=== PATIENT | male | born 1990 | race Caucasian/White ===

== ENCOUNTER 2016-06-12 15:48 | Emergency (ER) | payer BC, OTHER ==
[2016-06-12 15:53] VITALS: BP 147/75; PULSE 68; RESP 16; TEMP 98.1; O2SAT 97
--- NOTE | 2016-06-12 16:10 | EDPHY ---
H & P Time Seen by Provider: 06/12/16 16:15 HPI/ROS: CHIEF COMPLAINT: Left knee pain and swelling HISTORY OF PRESENT ILLNESS: 26-year-old male in the ER via private vehicle complaining of acute left knee pain with swelling after he was wrestling 2 days ago and felt his left patella sublux. Self reduced. Today he "stepped wrong" and felt instability and pain left knee. No fall from height. No paresthesia. No sensory or motor deficit. Reproducible pain with range of motion and palpation PHYSICAL EXAM (Prior to examination, patient consented to physical exam, hands were washed and my usual and customary physical exam procedures followed) 1) GENERAL: Well-developed, well-nourished, alert and oriented. Appears to be in no acute distress. 2) HEAD: Normocephalic 3) HEENT: Pupils equal, round, reactive to light bilaterally. 4) LUNGS: Breathing comfortably. 5) MUSCULOSKELETAL: Exam of the left knee shows mild soft tissue swelling. Tender to palpation anteromedial aspect of knee. . Compartments are soft. Normal color normal temperature. No pain with axial loading 6) SKIN: intact. 7) VASCULAR: DP,PT pulses and cap refill present and brisk distally DIFFERENTIAL DIAGNOSIS: in no particular order including but not limited to fracture, sprain, compartment syndrome, septic arthritis, DVT Xray of the left knee interpreted by myself: no definitive acute osseous abnormality Procedure: Crutches indications for crutch use discussed with patient. Patient fitted for crutches by ER staff. Observed ambulating with crutches. I think the patient has the capacity to safely use crutches. Usual and customary crutch walking precautions provided Procedure: Splint A knee immobilizer splint was applied by ER technical support technician. After application of the splint I returned and re-examined the patient. The splint was adequately immobilizing the joint and distal to the splint the patient's circulation and sensation were intact. Patient shows no signs of compartment syndrome. Was given orthopedic precautions. MEDICAL DECISION MAKING Serial evaluations performed on patient. I discussed the limitations of x-ray in diagnosis of knee pain and injury. At this time I do not think that emergent MRI is currently indicated. However, I have recommended follow-up with Orthopedic surgery and provided this referral information. Informed the patient that outpatient MRI may be indicated. Doubt septic arthritis. Doubt compartment syndrome. Doubt DVT. Smoking Status: Never smoked Constitutional: Initial Vital Signs Temperature (C) 36.7 C 06/12/16 15:50 Heart Rate 68 06/12/16 15:50 Respiratory Rate 16 06/12/16 15:50 Blood Pressure 147/75 H 06/12/16 15:50 O2 Sat (%) 97 06/12/16 15:50 O2 Delivery Mode Room Air Allergies/Adverse Reactions: Penicillins Allergy (Mild, Verified 06/12/16 15:50) Rash Home Medications: Medication Instructions Recorded NK [No Known Home Meds] 06/12/16 MDM/Departure - Depart Disposition: Home, Routine, Self-Care Clinical Impression: Left knee pain Qualifiers: Chronicity: acute Qualified Code(s): M25.562 - Pain in left knee Condition: Good Instructions: Knee Sprain (ED) Additional Instructions: Return to the ER immediately if you experience discoloration, have worsening pain, numbness, tingling, or any other symptoms that concern you. If you received x-rays in the emergency department today, be advised, that ligamentous , tendon, muscular, and other non-bony injury cannot be fully ruled out. Try to keep your affected extremity elevated above the level of your chest, and keep cold packs on the affected area, for the next 48 hours. Referrals: Mayco Beltran MD [Medical Doctor] - 1-2 days without fail (Dr. Mayco Beltran is an orthopedic doctor)
== END 2016-06-12 16:44 | disposition home or self-care (01) ==
DX: S89.92XA Unspecified injury of left lower leg, initial encounter (principal); X58.XXXA Exposure to other specified factors, initial encounter; Y99.8 Other external cause status; Y93.72 Activity, wrestling
CPT/HCPCS: L1830

== ENCOUNTER 2017-08-18 14:48 | Emergency (ER) | payer BC ==
--- NOTE | 2017-08-18 15:19 | EDPHY ---
HPI/HX/ROS/PE/MDM Narrative: CHIEF COMPLAINT: Possible shoulder abscess HISTORY OF PRESENT ILLNESS: This patient is a healthy 27 year old male who states "I believe I may have two abscesses in my right and left shoulder." He self-administers biweekly IM testosterone injections in his deltoids. He had an abscess several years ago which felt similar. His current symptoms have been ongoing for three days, since his last injection. Today, he has felt febrile and diaphoretic. He notes pain when he lifts his shoulder. He denies IV drug use or oral steroid use. No history of diabetes. No recent cough or cold. No chills, chest pain, shortness of breath, palpitations, vomiting, diarrhea, urinary complaints, headache, lightheadedness. REVIEW OF SYSTEMS: Aside from elements discussed in the HPI, a comprehensive 10-point review of systems was reviewed and is negative. PAST MEDICAL HISTORY: Takes lithium. Uses IM testosterone twice weekly. SOCIAL HISTORY: Power-lifting competitor. Employed. Significant other at bedside. VITAL SIGNS: Reviewed by me GENERAL: Well-developed, well-nourished, resting comfortably in no respiratory distress. HEENT: Atraumatic. Eyes: No icterus, no injection. Mouth: moist mucous membranes. No erythema or lesions. Neck: supple with no adenopathy. LUNGS: Clear to auscultation bilaterally, no wheezes, rhonchi or rales. CARDIAC: Regular rate and rhythm, no rubs, murmurs or gallops. ABDOMEN: Soft, nontender, nondistended, bowel sounds normal. BACK: No CVA tenderness. EXTREMITIES: Right shoulder: 4cm x 3cm warm, fluctuant region a over the distal AC extending somewhat onto the deltoid. Pain with ROM. Left shoulder: 1-2 cm focal area of slight tenderness and warmth at the area where the patient had injected his testosterone. No fluctuance felt. Minimal erythema. NEURO: Alert and oriented, grossly nonfocal. SKIN: Warm and dry, no rash. PSYCHIATRIC: Normal mentation, no agitation. Portions of this note were transcribed by a medical review coordinator. I personally performed a history, physical exam, medical decision making, and confirmed accuracy of information the transcribed note. ED Course: 27 y/o male presents with concern for abscess over his left shoulder secondary to IM testosterone injections. Exam reveals [id number] area of warmth and fluctuance over the left AC extending down the deltoid. Patient is afebrile here in the emergency department. Plan for labs including CBC, chemistries, lactic acid. Plan for I&D of the possible abscess. 15:20 Procedure: Incision and Drainage abscess. The patient's abscess was located on the left shoulder. Risks, benefits, alternatives discussed with the patient and consent obtained. The area was prepped and draped in sterile fashion. The patient received local anesthesia with 1% lidocaine with epinephrine. The abscess was incised with a #15 blade and moderate amount of purulent drainage was expressed. The wound was packed to keep the incision open. The patient tolerated the procedure well. The procedure was performed by myself. Laboratory studies unremarkable. Reassessed patient. Plan to discharge home in good condition with prescription for Bactrim as patient has an allergy to penicillin. Follow up and return precautions discussed. He is comfortable with this plan. MDM: Differential diagnoses for the patient's symptom complex was considered including but not limited to soft tissue abscess, deep space abscess, infected joint, septicemia, MRSA, MSSA. - Data Points Laboratory Results: Laboratory Results 08/18/17 15:38 08/18/17 15:38 Medications Given: Discontinued Medications Fentanyl (Sublimaze) 75 mcg IVP EDNOW ONE Stop: 08/18/17 15:40 Last Admin: 08/18/17 15:51 Dose: Not Given Sodium Chloride (Ns) 1,000 mls @ 0 mls/hr IV ONCE ONE; Wide Open PRN Reason: Protocol Stop: 08/18/17 15:40 Last Admin: 08/18/17 15:50 Dose: 1,000 mls Ibuprofen (Motrin) 600 mg PO EDNOW ONE Stop: 08/18/17 16:50 Last Admin: 08/18/17 16:53 Dose: 600 mg Ondansetron HCl (Zofran) 4 mg IVP EDNOW ONE Stop: 08/18/17 15:39 Last Admin: 08/18/17 15:51 Dose: Not Given General Time Seen by Provider: 08/18/17 15:02 Initial Vital Signs: Initial Vital Signs Temperature (C) 36.9 C 08/18/17 14:54 Heart Rate 79 08/18/17 14:54 Respiratory Rate 16 08/18/17 14:54 Blood Pressure 135/66 H 08/18/17 14:54 O2 Sat (%) 96 08/18/17 14:54 O2 Delivery Mode Room Air Allergies/Adverse Reactions: Penicillins Allergy (Mild, Verified 08/18/17 14:53) Rash Home Medications: Medication Instructions Recorded [place] Carbonate 08/18/17 Sulfamethox/Tmp 800/160 mg 1 tab PO BID #10 tab 08/18/17 [Bactrim Ds] Testosterone 08/18/17 Departure - Departure Disposition: Home, Routine, Self-Care Clinical Impression: Abscess of left shoulder Condition: Good Instructions: Abscess (ED) Additional Instructions: Keep the packing in place for the next 24-48 hours. After that when you may remove the packing. Take antibiotics as directed. Bactrim DS 1 tablet by mouth 2 times a day for the next 5 days. Return to the emergency department for fever, redness, discharge from wound, increasing pain, fainting, or other worsening of condition. Okay to take Tylenol or ibuprofen as needed for discomfort. Referrals: LITO SHEFFIELD [Primary Care Provider] - As per Instructions Stand Alone Forms: Work Excuse Prescriptions: Sulfamethox/Tmp 800/160 mg [Bactrim Ds] 1 tab PO BID #10 tab Report Scribed for: Isis Dent Report Scribed by: Georgina Babin Date of Report: 08/18/17 Time of Report: 15:33
[2017-08-18] MEDS ORDERED: ONDANSETRON 4 MG/2 ML VIAL IVP ONE (15:38)
[2017-08-18] MEDS ORDERED: NS 1,000 ML IV ONE (15:39)
[2017-08-18] MEDS ORDERED: fentaNYL 100 MCG/2 ML INJ IVP ONE (15:39)
[2017-08-18 15:52] LABS: PLATELET COUNT 351 10^3/uL (150-400)
[2017-08-18] MEDS ORDERED: IBUPROFEN 600 MG TAB PO ONE (16:49)
[2017-08-18 17:01] VITALS: BP 142/65
== END 2017-08-18 17:01 | disposition home or self-care (01) ==
PROC: 0H9CXZZ Drainage of Left Upper Arm Skin, External Approach (ICD-10-PCS; principal; 2017-08-18)
DX: L02.414 Cutaneous abscess of left upper limb (principal); E86.9 Volume depletion, unspecified
CPT/HCPCS: J2405; J3010